=== PATIENT | male | born 1960 | race Caucasian/White ===

== ENCOUNTER 2016-07-19 17:14 | Emergency (ER) | payer MEDICARE, OTHER ==
--- NOTE | ~2016-07-19 | CR63 ---
[facility]. [facility] A Service of [facility] & [facility] RADIOLOGY TEXT RESULTS PATIENT: HERMANN EBLL LOCATION: SED : 64 UNIT #: [id number] AGE: [address]: Yumiko King APRN SEX: M ORDER DR: [id number] [place] [id number] E MR#: [id number] Acc #: [id number] NAME: HERMANN BELL : 1960 SEX: M STUDY DATE/TIME: 07/19/2016 17:42 UNIT: SED ROOM: STUDY DESCRIPTION: CR Chest 2 View Attending Physician: Yumiko iKng A.P.R.N. Ordering Physician: Yumiko King A.P.R.N. MEDICAL IMAGING REPORT This report is preliminary unless electronic signature is present. EXAM Chest PA and lateral, 07/19/2016 HISTORY Cough and sore throat beginning 1 day ago. Benign essential hypertension, chest congestion. FINDINGS PA and lateral examination of the chest upright shows a good expansion of the parenchyma with a normal distribution of the pulmonary vascularity. There is no indication of congestion, effusion, infiltrate, tumor, or nodular density. The pleural reflections and diaphragmatic contours are normal. The cardiac silhouette and mediastinal anatomy is within normal limits. IMPRESSION Normal chest. Dictated by... Micha Genao M.D. THIS IS AN ELECTRONICALLY VERIFIED REPORT Micha Genao M.D. at 07/20/2016 2:16 PM VANDANA/naeem TD: 07/20/2016 01:45 JOB #: [id number] MEDICAL IMAGING REPORT
[~2016-07-19 17:14] MED LIST: ASPIRIN81 M2; ATARAX; AVAPRO; FLONASE 0.05% N16 G1; INVOKANA100 MG; LAMISIL; LIPITOR; LISINOPRIL; LORTAB 5/500 TA1 TA2; NEURONTIN; NORVASC; PAXIL; ROBAXIN; XIGDUO; ZYRTEC
[2016-07-19 17:32] LABS: INFLUENZA A POS (NEG); INFLUENZA B NEG (NEG)
[2016-07-19] MEDS ORDERED: TAMIFLU75 M1 PO (18:15)
== END 2016-07-19 18:15 | disposition home or self-care (01) ==
LOC: SED 17:14
PROVIDERS: Nurse Practitioner
DX: J10.1 Influenza due to other identified influenza virus with other respiratory manifestations (principal); L42 Pityriasis rosea; E11.9 Type 2 diabetes mellitus without complications; I10 Essential (primary) hypertension; Z88.0 Allergy status to penicillin; Z87.891 Personal history of nicotine dependence
CPT/HCPCS: 71020; 82947; 87651; 87804; 99283